=== PATIENT | female | born 1960 | race American Indian/Alaskan Native ===

== ENCOUNTER 2016-08-10 15:26 | Emergency (ER) | payer OTHER ==
[2016-08-10 15:27] VITALS: BMI 31.3
[2016-08-10 15:33] VITALS: PULSE 96; RESP 18; TEMP 98; O2SAT 100
--- NOTE | 2016-08-10 16:05 | ED PDOC ---
Lower Extremity Pain/Injury Time Seen by Provider: 08/10/16 15:37 Chief Complaint (Nursing): Lower Extremity Problem/Injury Chief Complaint (Provider): right ankle pain History Per: Patient History/Exam Limitations: no limitations Current Symptoms Are (Timing): Still Present Additional Complaint(s): Aarti Staley is a 56 year old female, with a previous medical history of hypertension, arthritis and back problems, who presents to the ED with complaints of atraumatic right ankle pain and swelling. Patient denies any numbness or tingling. Past Medical History Reviewed: Historical Data, Nursing Documentation, Vital Signs Vital Signs: Last Vital Signs Temp 98 F 08/10/16 15:28 Pulse 96 H 08/10/16 15:28 Resp 18 08/10/16 15:28 BP Pulse Ox 100 08/10/16 15:28 - Medical History PMH: Arthritis, Back Problems (chronic pain), HTN - Family History Family History: States: Unknown Family Hx - Immunization History Hx Tetanus Toxoid Vaccination: Yes - Home Medications Home Medications: Ambulatory Orders Medication Instructions Recorded Amoxicillin/Clavulanate Pota 1 tab PO BID #20 tab 01/18/14 [Augmentin 875 mg-125 mg] Fluticasone Nasal [Flonase] 1 actuation NS BID #1 bottle 01/18/14 Docusate Sodium [Colace] 1 tab PO BID PRN #20 sgl 05/31/14 Hard Fat/Phenylephrine [place] 1 sup RC DAILY #7 sup 05/31/14 [Anusol Suppository] Hydrochlorothiazide [HCTZ] 25 mg PO DAILY #15 05/31/14 Enalapril Maleate [Vasotec] 10 mg PO DAILY #30 tab 01/03/15 Aspirin [Aspirin] 81 mg PO DAILY 02/09/15 Enalapril Maleate [Vasotec] 10 mg PO DAILY #30 tab 02/09/15 traMADol [Ultram] 50 mg PO TID PRN #15 tab 06/10/15 Naproxen [Naprosyn] 500 mg PO Q12 #15 tab 08/23/15 Olopatadine HCl [Pataday] 1 drop OU DAILY #1 bottle 08/28/15 Polymyxin/Trimethoprim Sulfate 2 drop OU TID #10 bottle 08/28/15 [Polytrim Ophth Soln] Cyclobenzaprine [Cyclobenzaprine 10 mg PO TID #30 tab 10/30/15 HCl] Naproxen [Naprosyn] 500 mg PO BID PRN #20 tablet 10/30/15 - Allergies Allergies/Adverse Reactions: Allergies Allergy/AdvReac Type Severity Reaction Status Date / Time No Known Allergies Allergy Verified 08/23/15 03:55 Review of Systems ROS Statement: Except As Marked, All Systems Reviewed And Found Negative Musculoskeletal: Positive for: Foot Pain (right ankle ), Other (right ankle swelling ) Physical Exam - Reviewed Nursing Documentation Reviewed: Yes Vital Signs Reviewed: Yes - Physical Exam Appears: Positive for: Well, Non-toxic, No Acute Distress Pulses-Dorsalis Pedis (L): 2+ Pulses-Dorsalis Pedis (R): 2+ Extremity: Positive for: Normal ROM, Capillary Refill (< 2 seconds ), Other ( right ankle within normal limits ). Negative for: Tenderness, Calf Tenderness, Deformity, Swelling Neurologic/Psych: Positive for: Alert, Oriented - ECG O2 Sat by Pulse Oximetry: 100 (RA) Pulse Ox Interpretation: Normal Medical Decision Making Medical Decision Making: Initial Impression: Right ankle pain Initial Plan: * x-ray right ankle X-ray without acute fracture or dislocation. (+) narrowing of the anter space between the tibia and talus. Sourav wrap placed. Scribe Attestation: Documented by Iliana Rosenberg, acting as a scribe for Jalyn Leggett PA-C. Provider Scribe Attestation: All medical record entries made by the Scribe were at my direction and personally dictated by me. I have reviewed the chart and agree that the record accurately reflects my personal performance of the history, physical exam, medical decision making, and the department course for this patient. I have also personally directed, reviewed, and agree with the discharge instructions and disposition. Disposition - Clinical Impression Clinical Impression: Ankle pain - Patient ED Disposition Is Patient to be Admitted: No Counseled Patient/Family Regarding: Diagnosis, Need For Followup - Disposition Referrals: [facility] [Outside] [facility] [Outside] Disposition: Routine/Home Disposition Time: 17:22 Condition: GOOD Additional Instructions: Ice, motrin for pain. Instructions: Arthralgia (ED)
--- NOTE | 2016-08-11 09:57 | RAD ---
PROCEDURE: Right Ankle Radiographs. HISTORY: ankle pain and swelling COMPARISON: None FINDINGS: BONES: Normal. No fracture. JOINTS: Normal. No osteoarthritis. Ankle mortise maintained. Talar dome intact SOFT TISSUES: Normal. OTHER FINDINGS: None. IMPRESSION: Normal right ankle radiographs.
== END 2016-08-10 18:03 | disposition home or self-care (01) ==
LOC: H.ER 15:26
DX: M25.571 Pain in right ankle and joints of right foot (principal); I10 Essential (primary) hypertension

== ENCOUNTER 2016-11-01 16:06 | Emergency (ER) | payer OTHER ==
[2016-11-01 16:06] VITALS: BMI 31.3
[2016-11-01 16:50] VITALS: BP 209/135; PULSE 62; RESP 16; TEMP 98.1; O2SAT 96
--- NOTE | 2016-11-01 17:04 | ED PDOC ---
Lower Extremity Pain/Injury Time Seen by Provider: 11/01/16 17:03 Chief Complaint (Nursing): Lower Extremity Problem/Injury Chief Complaint (Provider): FOOT PAIN History Per: Patient (56 Y/O FEMALE HERE WITH LEFT FOOT PAIN ONGOING. DENIES ANY FALLS. PATIENT HAS H/O HTN AND HAS BEEN NONCOMPLIANT WITH MEDICATIONS. DENIES ANY CHEST PAIN/ABDOMINAL PAIN. DOES NOT WANT ANY EVALUATION OR TREATMENT OF BLOOD PRESSURE.) Past Medical History Reviewed: Historical Data, Nursing Documentation, Vital Signs Vital Signs: Last Vital Signs Temp 98.1 F 11/01/16 16:45 Pulse 62 11/01/16 16:45 Resp 16 11/01/16 16:45 BP 209/135 H 11/01/16 16:45 Pulse Ox 96 11/01/16 16:45 - Medical History PMH: Arthritis, Back Problems (chronic pain), HTN - Family History Family History: States: Unknown Family Hx - Immunization History Hx Tetanus Toxoid Vaccination: Yes - Home Medications Home Medications: Ambulatory Orders Medication Instructions Recorded Amoxicillin/Clavulanate Pota 1 tab PO BID #20 tab 01/18/14 [Augmentin 875 mg-125 mg] Fluticasone Nasal [Flonase] 1 actuation NS BID #1 bottle 01/18/14 Docusate Sodium [Colace] 1 tab PO BID PRN #20 sgl 05/31/14 Hard Fat/Phenylephrine [place] 1 sup RC DAILY #7 sup 05/31/14 [Anusol Suppository] Hydrochlorothiazide [HCTZ] 25 mg PO DAILY #15 05/31/14 Enalapril Maleate [Vasotec] 10 mg PO DAILY #30 tab 01/03/15 Aspirin [Aspirin] 81 mg PO DAILY 02/09/15 Enalapril Maleate [Vasotec] 10 mg PO DAILY #30 tab 02/09/15 traMADol [Ultram] 50 mg PO TID PRN #15 tab 06/10/15 Naproxen [Naprosyn] 500 mg PO Q12 #15 tab 08/23/15 Olopatadine HCl [Pataday] 1 drop OU DAILY #1 bottle 08/28/15 Polymyxin/Trimethoprim Sulfate 2 drop OU TID #10 bottle 08/28/15 [Polytrim Ophth Soln] Cyclobenzaprine [Cyclobenzaprine 10 mg PO TID #30 tab 10/30/15 HCl] Naproxen [Naprosyn] 500 mg PO BID PRN #20 tablet 10/30/15 Ibuprofen [Motrin Tab] 800 mg PO Q6H PRN #2 tab 08/10/16 Acetaminophen [Acetaminophen Extra 2 tab PO Q6 PRN #24 tablet 11/01/16 Strength] Enalapril/Hydrochlorothiazide 1 each PO DAILY #15 tablet 11/01/16 [Enalapril-Hctz 10-25 mg Tablet] - Allergies Allergies/Adverse Reactions: Allergies Allergy/AdvReac Type Severity Reaction Status Date / Time No Known Allergies Allergy Verified 08/23/15 03:55 Review of Systems ROS Statement: Except As Marked, All Systems Reviewed And Found Negative Physical Exam - Reviewed Nursing Documentation Reviewed: Yes Vital Signs Reviewed: Yes - Physical Exam Appears: Positive for: Well, Non-toxic, No Acute Distress Head Exam: Positive for: ATRAUMATIC, NORMAL INSPECTION, NORMOCEPHALIC Skin: Positive for: Normal Color, Warm, DRY Eye Exam: Positive for: EOMI, Normal appearance, PERRL ENT: Positive for: Normal ENT Inspection Neck: Positive for: Normal, Painless ROM Cardiovascular/Chest: Positive for: Regular Rate, Rhythm Respiratory: Positive for: CNT, Normal Breath Sounds Gastrointestinal/Abdominal: Positive for: Normal Exam, Bowel Sounds, Soft Back: Positive for: Normal Inspection Extremity: Positive for: Normal ROM, Tenderness (TENDERNESS NOTED DORSUM LEFT FOOT) Neurologic/Psych: Positive for: Alert, Oriented - ECG O2 Sat by Pulse Oximetry: 96 - Progress ED Course And Treament: XRY OF FOOT: NO OBVIOUS FX. ? DJD D/W PATIENT. PATIENT DOES NOT WANT ANTIHYPERTENSIVES OR ANY EVALUATION OF ELEVATED BLOOD PRESSURE. D/W HER POSSIBLE EFFECTS OF UNCONTROLLED BLOOD PRESSURE. ACETAMINOPHEN 975MG X 1 DOSE FOR FOOT PAIN Disposition - Clinical Impression Clinical Impression: Foot pain, Elevated blood pressure - Patient ED Disposition Is Patient to be Admitted: No - Disposition Disposition: Against Medical Advice Disposition Time: 17:24 Condition: FAIR Prescriptions: Acetaminophen [Acetaminophen Extra Strength] 2 tab PO Q6 PRN #24 tablet PRN Reason: Pain, Moderate (4-7) Enalapril/Hydrochlorothiazide [Enalapril-Hctz 10-25 mg Tablet] 1 each PO DAILY # 15 tablet Instructions: Foot Sprain (ED), DASH Eating Plan (ED), Hypertension (ED) Forms: [facility] (Croatian)
--- NOTE | 2016-11-01 18:48 | RAD ---
PROCEDURE: Right Foot Radiographs. HISTORY: Foot Pain. No history of recent/ related trauma provided COMPARISON: 06/10/2015 FINDINGS: BONES: Normal. No fracture. JOINTS: Mild degenerative changes tarsal bones. No significant interval change. SOFT TISSUES: Normal. OTHER FINDINGS: None. IMPRESSION: No significant or acute findings to account for/ related to the clinical presentation. No significant interval change compared to the prior examination(s).
== END 2016-11-01 18:00 | disposition left against medical advice (07) ==
LOC: H.ER 16:06
DX: M79.672 Pain in left foot (principal); I10 Essential (primary) hypertension

== ENCOUNTER 2016-12-10 10:44 | Emergency (ER) | payer OTHER ==
[2016-12-10 10:51] VITALS: BP 168/145; PULSE 80; RESP 16; TEMP 98; O2SAT 100
[2016-12-10 10:53] VITALS: BMI 30.7
--- NOTE | 2016-12-10 11:34 | ED PDOC ---
HPI: Back Time Seen by Provider: 12/10/16 11:05 Chief Complaint (Nursing): Back Pain Chief Complaint (Provider): Back Pain History Per: Patient Additional Complaint(s): Patient is a 56 yo female, PMH of HTN, said she was sweeping yesterday and twisted her back. She reports that she has been having pain in her back, on the right side, radiating down RLE. No bowel or bladder dysfunction. Past Medical History Reviewed: Nursing Documentation, Vital Signs Vital Signs: Last Vital Signs Temp 98.0 F 12/10/16 10:50 Pulse 80 12/10/16 10:50 Resp 16 12/10/16 10:50 BP 168/145 H 12/10/16 10:50 Pulse Ox 100 12/10/16 10:50 - Medical History PMH: Arthritis, Back Problems (chronic pain), HTN - Surgical History Surgical History: No Surg Hx - Family History Family History: States: Unknown Family Hx - Living Arrangements Living Arrangements: With Family - Social History Current smoker - smoking cessation education provided: No Alcohol: None Drugs: Denies - Immunization History Hx Tetanus Toxoid Vaccination: Yes - Home Medications Home Medications: Ambulatory Orders Medication Instructions Recorded Amoxicillin/Clavulanate Pota 1 tab PO BID #20 tab 01/18/14 [Augmentin 875 mg-125 mg] Fluticasone Nasal [Flonase] 1 actuation NS BID #1 bottle 01/18/14 Docusate Sodium [Colace] 1 tab PO BID PRN #20 sgl 05/31/14 Hard Fat/Phenylephrine [place] 1 sup RC DAILY #7 sup 05/31/14 [Anusol Suppository] Hydrochlorothiazide [HCTZ] 25 mg PO DAILY #15 05/31/14 Enalapril Maleate [Vasotec] 10 mg PO DAILY #30 tab 01/03/15 Aspirin [Aspirin] 81 mg PO DAILY 02/09/15 Enalapril Maleate [Vasotec] 10 mg PO DAILY #30 tab 02/09/15 traMADol [Ultram] 50 mg PO TID PRN #15 tab 06/10/15 Naproxen [Naprosyn] 500 mg PO Q12 #15 tab 08/23/15 Olopatadine HCl [Pataday] 1 drop OU DAILY #1 bottle 08/28/15 Polymyxin/Trimethoprim Sulfate 2 drop OU TID #10 bottle 08/28/15 [Polytrim Ophth Soln] Cyclobenzaprine [Cyclobenzaprine 10 mg PO TID #30 tab 10/30/15 HCl] Naproxen [Naprosyn] 500 mg PO BID PRN #20 tablet 10/30/15 Ibuprofen [Motrin Tab] 800 mg PO Q6H PRN #2 tab 08/10/16 Acetaminophen [Acetaminophen Extra 2 tab PO Q6 PRN #24 tablet 11/01/16 Strength] Enalapril/Hydrochlorothiazide 1 each PO DAILY #15 tablet 11/01/16 [Enalapril-Hctz 10-25 mg Tablet] Cyclobenzaprine [Cyclobenzaprine 10 mg PO TID #20 tab 12/10/16 HCl] Ibuprofen [Motrin] 600 mg PO Q6 #20 tab 12/10/16 oxyCODONE/Acetaminophen [Percocet 1 ea PO Q6 PRN #5 tab 12/10/16 5/325 mg Tab] - Allergies Allergies/Adverse Reactions: Allergies Allergy/AdvReac Type Severity Reaction Status Date / Time No Known Allergies Allergy Verified 08/23/15 03:55 Review of Systems ROS Statement: Except As Marked, All Systems Reviewed And Found Negative Musculoskeletal: Positive for: Back Pain Physical Exam - Reviewed Nursing Documentation Reviewed: Yes Vital Signs Reviewed: Yes - Physical Exam Appears: Positive for: Well, Non-toxic, No Acute Distress Head Exam: Positive for: ATRAUMATIC, NORMAL INSPECTION, NORMOCEPHALIC Skin: Positive for: Normal Color, Warm, DRY Eye Exam: Positive for: EOMI, Normal appearance, PERRL ENT: Positive for: Normal ENT Inspection Neck: Positive for: Normal, Painless ROM Cardiovascular/Chest: Positive for: Regular Rate, Rhythm Respiratory: Positive for: CNT, Normal Breath Sounds Gastrointestinal/Abdominal: Positive for: Normal Exam, Bowel Sounds, Soft Back: Positive for: Normal Inspection, Muscle Spasm, Other (LS right sided paraspinal tenderness). Negative for: Vertebral Tenderness Extremity: Positive for: Normal ROM Neurologic/Psych: Positive for: Alert, Oriented - ECG O2 Sat by Pulse Oximetry: 100 Medical Decision Making Medical Decision Making: Medicated with Motrin and Flexeril, reports pain improved on re-eval Pt ambulating around ED and asking to go home. repeat BP: 155/78 Disposition - Clinical Impression Clinical Impression: Low back pain, Acute back pain - Patient ED Disposition Is Patient to be Admitted: No - Disposition Disposition: Routine/Home Disposition Time: 15:42 Condition: STABLE Prescriptions: Cyclobenzaprine [Cyclobenzaprine HCl] 10 mg PO TID #20 tab Ibuprofen [Motrin] 600 mg PO Q6 #20 tab oxyCODONE/Acetaminophen [Percocet 5/325 mg Tab] 1 ea PO Q6 PRN #5 tab PRN Reason: Pain, Severe (8-10) Instructions: Acute Low Back Pain (ED) Forms: [facility] ([place]amazight) - POA Present On Arrival: None
[2016-12-10] MEDS ORDERED: Oxycodone/Acetaminophen 5/325 mg Tab PO STA (12:41)
[2016-12-10] MEDS ORDERED: Oxycodone/Acetaminophen 5/325 mg Tab ONE (12:45)
== END 2016-12-10 12:56 | disposition home or self-care (01) ==
LOC: H.ER 10:44
DX: M54.5 Low back pain (principal); G89.29 Other chronic pain; I10 Essential (primary) hypertension; Z79.82 Long term (current) use of aspirin

== ENCOUNTER 2017-01-24 13:26 | Emergency (ER) | payer OTHER ==
[2017-01-24 13:26] VITALS: BMI 30.7
[2017-01-24 13:32] VITALS: RESP 17; TEMP 96; O2SAT 97
[2017-01-24 13:35] VITALS: BP 227/137
--- NOTE | 2017-01-24 14:06 | ED PDOC ---
HPI: General Adult Time Seen by Provider: 01/24/17 13:41 Chief Complaint (Nursing): Eye Problem History Per: Patient History/Exam Limitations: no limitations Additional Complaint(s): 56 y/o F with a PMHx of HTN presenting with a BP of 227/137. Pt came to ER c/o bilateral eye pain, redness and whitish thick discharge that began simultaneously on both eyes 4 days ago. Pt reports NOT taking her hypertensive medications for 2 days. Pt reports diffuse headache and lightheadedness. Pt denies fever, visual disturbances, CP, SOB, cough, nasal congestion, runny nose , abdominal pain, urinary complaints or peripheral edema. NKDA Meds: Enalapril PMHx: HTN PSHx: denied. FHx: HTN SHx: Pt smokes 5 cigarettes per day for ~36 years. EtOH ocasionally and NO rec drugs. Past Medical History Vital Signs: Last Vital Signs Temp 96 F L 01/24/17 13:29 Pulse 89 01/24/17 14:58 Resp 17 01/24/17 13:29 BP 227/137 H 01/24/17 13:29 Pulse Ox 97 01/24/17 14:58 - Medical History PMH: Arthritis, Back Problems (chronic pain), HTN - Surgical History Surgical History: No Surg Hx - Family History Family History: States: Unknown Family Hx - Social History Current smoker - smoking cessation education provided: Yes Alcohol: Social Drugs: Denies - Immunization History Hx Tetanus Toxoid Vaccination: Yes - Home Medications Home Medications: Ambulatory Orders Medication Instructions Recorded Amoxicillin/Clavulanate Pota 1 tab PO BID #20 tab 01/18/14 [Augmentin 875 mg-125 mg] Fluticasone Nasal [Flonase] 1 actuation NS BID #1 bottle 01/18/14 Docusate Sodium [Colace] 1 tab PO BID PRN #20 sgl 05/31/14 Hard Fat/Phenylephrine [place] 1 sup RC DAILY #7 sup 05/31/14 [Anusol Suppository] Hydrochlorothiazide [HCTZ] 25 mg PO DAILY #15 05/31/14 Enalapril Maleate [Vasotec] 10 mg PO DAILY #30 tab 01/03/15 Aspirin [Aspirin] 81 mg PO DAILY 02/09/15 Enalapril Maleate [Vasotec] 10 mg PO DAILY #30 tab 02/09/15 traMADol [Ultram] 50 mg PO TID PRN #15 tab 06/10/15 Naproxen [Naprosyn] 500 mg PO Q12 #15 tab 08/23/15 Olopatadine HCl [Pataday] 1 drop OU DAILY #1 bottle 08/28/15 Polymyxin/Trimethoprim Sulfate 2 drop OU TID #10 bottle 08/28/15 [Polytrim Ophth Soln] Cyclobenzaprine [Cyclobenzaprine 10 mg PO TID #30 tab 10/30/15 HCl] Naproxen [Naprosyn] 500 mg PO BID PRN #20 tablet 10/30/15 Ibuprofen [Motrin Tab] 800 mg PO Q6H PRN #2 tab 08/10/16 Acetaminophen [Acetaminophen Extra 2 tab PO Q6 PRN #24 tablet 11/01/16 Strength] Enalapril/Hydrochlorothiazide 1 each PO DAILY #15 tablet 11/01/16 [Enalapril-Hctz 10-25 mg Tablet] Cyclobenzaprine [Cyclobenzaprine 10 mg PO TID #20 tab 12/10/16 HCl] Ibuprofen [Motrin] 600 mg PO Q6 #20 tab 12/10/16 oxyCODONE/Acetaminophen [Percocet 1 ea PO Q6 PRN #5 tab 12/10/16 5/325 mg Tab] Tobramycin 0.3% [Tobramycin 5 Ml] 1 drop OP TID #1 bottle 01/24/17 amLODIPine [Norvasc] 10 mg PO DAILY #30 tab 01/24/17 - Allergies Allergies/Adverse Reactions: Allergies Allergy/AdvReac Type Severity Reaction Status Date / Time No Known Allergies Allergy Verified 01/24/17 13:28 Review of Systems Constitutional: Negative for: Fever, Chills Eyes: Positive for: Pain, Conjunctivae Inflammation, Redness. Negative for: Vision Change ENT: Negative for: Ear Pain, Ear Discharge Cardiovascular: Negative for: Chest Pain, Palpitations Respiratory: Negative for: Cough, Shortness of Breath Gastrointestinal: Negative for: Nausea, Vomiting, Abdominal Pain, Diarrhea, Constipation Genitourinary Female: Negative for: Dysuria, Frequency, Hematuria, Vaginal Discharge Musculoskeletal: Negative for: Neck Pain Skin: Negative for: Rash Neurological: Negative for: Weakness, Numbness, Confusion Physical Exam - Reviewed Vital Signs Reviewed: Yes - Physical Exam Appears: Positive for: Well, No Acute Distress Head Exam: Positive for: ATRAUMATIC, NORMAL INSPECTION, NORMOCEPHALIC Skin: Positive for: Normal Color, Warm Eye Exam: Positive for: Conjunctival injection (presence of photophobia. ) ENT: Positive for: Normal ENT Inspection Neck: Positive for: Normal, Supple Cardiovascular/Chest: Positive for: Regular Rate, Rhythm Respiratory: Positive for: Normal Breath Sounds Gastrointestinal/Abdominal: Positive for: Normal Exam, Bowel Sounds. Negative for: Organomegaly - ECG ECG: Positive for: Viewed By Me ECG Rhythm: Positive for: Sinus Rhythm Interpretation Of Abn EKG: Left ventricular hypertrophy with repolarization abnormality. Rate: 89 O2 Sat by Pulse Oximetry: 97 Pulse Ox Interpretation: Normal Medical Decision Making Medical Decision Makin56 y/o F presenting with elevated BP. Plan: --Labetalol --EKG --CBC --CMP --Urinalysis 14:02: Repeated BP 202/145-very elevated. Today's EKG showed LV hypertrophy with repolarization abnormality, same result as on 02/09/15. 14:45: Pt declined pharmacotherapy and blood analysis. Pt was extensively counseled and educated on the complications from very elevated BP. Pt explained that patient with very elevated RUDY are prone to develop strokes and heart attacks. Pt reported back, stating she is willing to take her chances. Pt will be discharged against medical advise, Rx for Amlodipine and Tobradex will be prescribed. Pt instructed to be evaluated by PCP promptly. Disposition - Clinical Impression Clinical Impression: Conjunctivitis, Hypertension - Patient ED Disposition Is Patient to be Admitted: No - Disposition Referrals: [facility] [Outside] Disposition: Against Medical Advice Disposition Time: 14:59 Condition: GOOD Prescriptions: amLODIPine [Norvasc] 10 mg PO DAILY #30 tab Tobramycin 0.3% [Tobramycin 5 Ml] 1 drop OP TID #1 bottle Instructions: Hypertension (ED), Conjunctivitis (ED) Forms: [employer] (Japanese)
[2017-01-24 14:57] VITALS: PULSE 89
--- NOTE | 2017-01-25 12:59 | CARD ---
APPROVED REPORT EKG Measurement Heart [id number] <Conclusion> Normal sinus rhythm Biatrial enlargement Left ventricular hypertrophy with repolarization abnormality Cannot rule out Septal infarct, age undetermined Abnormal ECG
== END 2017-01-24 14:52 | disposition home or self-care (01) ==
LOC: H.ER 13:26
DX: H10.9 Unspecified conjunctivitis (principal); I10 Essential (primary) hypertension; G89.29 Other chronic pain; I11.9 Hypertensive heart disease without heart failure; I51.7 Cardiomegaly; Z79.82 Long term (current) use of aspirin; Z82.49 Family history of ischemic heart disease and other diseases of the circulatory system

== ENCOUNTER 2017-05-24 09:33 | Emergency (ER) | payer OTHER ==
[2017-05-24] MEDS ORDERED: DiphenhydrAMINE 50 mg/ml Inj IVP STA (09:48)
[2017-05-24] MEDS ORDERED: Albuterol-Ipratrop 3 mg / 0.5 (3 ml) UD INH STA ×2 (09:48→10:21)
--- NOTE | 2017-05-24 09:56 | ED PDOC ---
HPI: General Adult Time Seen by Provider: 05/24/17 09:38 Chief Complaint (Provider): Chest Pain/Shortness of Breath History Per: Patient History/Exam Limitations: no limitations Onset/Duration Of Symptoms: Days (x1) Current Symptoms Are (Timing): Still Present Additional Complaint(s): Aarti Staley is a 57 year old female that presents to the ED with a chief complaint of throat tightness, right-sided chest pain, and shortness of breath that she has been experiencing since yesterday. Patient denies any cough or palpitations and states that she has never had symptoms like this before. Against Medical Advice - AMA Patient Left Against Medical Advice: The patient declines admission to the hospital and wishes to leave the Emergency Department. This action is against my medical advice. This decision was made with informed refusal. The patient was told that admission to the hospital is necessary. Explanation of the reasons why were discussed. The risks of leaving were explained to the patient and include, but are not limited to, worsening of known or currently unknown conditions, permanent disability and from undiagnosed or untreated conditions. The patient has the capacity to make this informed decision and understands my explanation of the current medical problem and risks of leaving. The patient voluntarily accepts these risks and signed an AMA form documenting our conversation. The patient was given the opportunity to ask questions and reconsider. The patient was encouraged to return to the Emergency Department at any time for further care. Past Medical History Reviewed: Historical Data, Nursing Documentation, Vital Signs Vital Signs: Last Vital Signs Temp 98 F 05/24/17 09:54 Pulse 81 05/24/17 10:15 Resp 21 05/24/17 10:15 BP 168/86 H 05/24/17 10:15 Pulse Ox 96 05/24/17 10:15 - Medical History PMH: Arthritis, Back Problems (chronic pain), HTN - Family History Family History: States: Unknown Family Hx - Social History Current smoker - smoking cessation education provided: Yes - Immunization History Hx Tetanus Toxoid Vaccination: Yes - Home Medications Home Medications: Ambulatory Orders Medication Instructions Recorded No Known Home Med 05/24/17 - Allergies Allergies/Adverse Reactions: Allergies Allergy/AdvReac Type Severity Reaction Status Date / Time No Known Allergies Allergy Verified 05/24/17 09:51 Review of Systems ROS Statement: Except As Marked, All Systems Reviewed And Found Negative ENT: Positive for: Other (throat tightness) Cardiovascular: Positive for: Chest Pain (right-sided) Respiratory: Positive for: Shortness of Breath Physical Exam - Reviewed Nursing Documentation Reviewed: Yes Vital Signs Reviewed: Yes - Physical Exam Appears: Positive for: Non-toxic, No Acute Distress Head Exam: Positive for: ATRAUMATIC, NORMOCEPHALIC Skin: Positive for: Normal Color, Warm Eye Exam: Positive for: EOMI, Normal appearance, PERRL Cardiovascular/Chest: Positive for: Regular Rate, Rhythm. Negative for: Murmur Respiratory: Positive for: Wheezing (b/l), Respiratory Distress (mild). Negative for: Normal Breath Sounds Gastrointestinal/Abdominal: Positive for: Normal Exam, Soft. Negative for: Tenderness Back: Positive for: Normal Inspection. Negative for: L CVA Tenderness, R CVA Tenderness Extremity: Positive for: Normal ROM. Negative for: Deformity, Swelling Neurologic/Psych: Positive for: Alert, Oriented. Negative for: Motor/Sensory Deficits - Laboratory Results Result Diagrams: 05/24/17 09:45 05/24/17 09:45 Medical Decision Making Medical Decision Making: Impression: Wheezing, Throat Tightness Plan: * Chest X-Ray * EKG * CMP * CBC * PTT * PT * D-Dimer * Troponin I * Blood culture * Urinalysis * Benadryl 50 mg IV * Pepcid 20 mg IV * Solumedrol 125 mg IV * Duoneb 3 ml INH * Peak Flow Pre/Post Tx * Reevaluation 13:17 Patient left AMA. Scribe Attestation: Documented by Ashley Joiner, acting as a scribe for Iliana Reynolds MD. Provider Scribe Attestation: All medical record entries made by the Scribe were at my direction and personally dictated by me. I have reviewed the chart and agree that the record accurately reflects my personal performance of the history, physical exam, medical decision making, and the department course for this patient. I have also personally directed, reviewed, and agree with the discharge instructions and disposition. Disposition - Clinical Impression Clinical Impression: Uncontrolled hypertension, Wheezing - Disposition Disposition: Against Medical Advice Disposition Time: 13:17 Condition: UNKNOWN
[2017-05-24] MEDS ORDERED: DiphenhydrAMINE 50 mg/ml Inj ONE (10:03)
[2017-05-24 10:27] LABS: ALB/GLOB RATIO 1.1 (1.0-2.1); ALBUMIN 4.2 g/dL (3.5-5.0); ALT/SGPT 38 U/L (9-52); AST/SGOT 37 U/L (14-36); BLOOD UREA NITROGEN 13 mg/dl (7-17); CALCIUM 9.7 mg/dL (8.4-10.2); GFR AFRICAN-AMERICAN > 60; GFR NON-AFRICAN AMERICAN > 60
[2017-05-24 10:34] LABS: BASO % 0.4 % (0.0-2.0); EOS # 0.2 K/uL (0.0-0.7); HEMOGLOBIN 13.6 g/dL (12.0-16.0); LYMPH # 2.3 K/uL (1.0-4.3); LYMPH % 30.3 % (20.0-40.0); MEAN CELL VOLUME 83.4 fl (81.0-99.0); MEAN CORPUSCULAR HEMOGLOBIN 28.1 pg (27.0-31.0); MEAN CORPUSCULAR HGB CONC 33.7 g/dL (33.0-37.0); MEAN PLATELET VOLUME 9.7 fl (7.2-11.7); MONO # 0.5 K/uL (0.0-0.8); MONO % 6.7 % (0.0-10.0); NEUT # 4.6 K/uL (1.8-7.0); NEUT % 60.6 % (50.0-75.0); NRBC % 0.2 % (0.0-0.0); RBC 4.83 Mil/uL (3.80-5.20); RED CELL DISTRIBUTION WIDTH 14.7 % (11.5-14.5); WHITE BLOOD COUNT 7.6 K/uL (4.8-10.8)
[2017-05-24 10:36] LABS: PROTHROMBIN TIME 10.5 Seconds (9.8-13.1)
[2017-05-24] MEDS ORDERED: Potassium Chloride 20 mEq ER Tab PO STA (10:37)
[2017-05-24] MEDS ORDERED: Potassium Chloride 20 mEq ER Tab PO ONE (10:43)
--- NOTE | 2017-05-24 11:36 | CARD ---
APPROVED REPORT EKG Measurement Heart [id number] <Conclusion> Normal sinus rhythm Biatrial enlargement Left ventricular hypertrophy with repolarization abnormality Prolonged QT Abnormal ECG
[2017-05-24 12:19] LABS: SQUAMOUS EPITHIAL < 1 /hpf (0-5); URINE BACTERIA RARE (<OCC); URINE BILIRUBIN NEGATIVE (NEGATIVE); URINE BLOOD NEGATIVE (NEGATIVE); URINE CLARITY CLEAR (Clear); URINE COLOR YELLOW (YELLOW); URINE GLUCOSE (UA) NEG (Normal); URINE LEUKOCYTE ESTERASE NEG Leu/uL (Negative); URINE NITRATE NEGATIVE (NEGATIVE); URINE PROTEIN NEGATIVE (NEGATIVE); URINE UROBILINOGEN 0.2-1.0 mg/dL (0.2-1.0)
--- NOTE | 2017-05-24 14:23 | RAD ---
HISTORY: SOB COMPARISON: Chest x-ray performed 12/17/11 TECHNIQUE: Chest, one view. FINDINGS: Examination limited by habitus. LUNGS: Mild pulmonary venous congestion. Linear atelectasis, right midlung zone. Please note that chest x-ray has limited sensitivity for the detection of pulmonary masses. PLEURA: No significant pleural effusion identified. No definite pneumothorax . CARDIOVASCULAR: Cardiomegaly. OSSEOUS STRUCTURES: No acute osseous abnormality identified. VISUALIZED UPPER ABDOMEN: Unremarkable. OTHER FINDINGS: None. IMPRESSION: Mild pulmonary venous congestion. Linear atelectasis, right midlung zone. Cardiomegaly.
[2017-05-24 15:15] VITALS: BP 167/95; PULSE 68; RESP 18; TEMP 98.4; O2SAT 93
== END 2017-05-24 14:00 | disposition left against medical advice (07) ==
LOC: H.ER 09:33
DX: I10 Essential (primary) hypertension (principal); R06.2 Wheezing; F17.200 Nicotine dependence, unspecified, uncomplicated; G89.29 Other chronic pain
CPT/HCPCS: 71045; 80053; 81003; 84484; 85025; 85378; 85610; 85730; 87040; 93005; 94640; 96374; 96375; 99284; J1200; J2930

== ENCOUNTER 2017-09-05 12:52 | Emergency (ER) | payer OTHER ==
[2017-09-05 12:53] VITALS: BMI 30.7
[2017-09-05 13:39] VITALS: RESP 18
--- NOTE | 2017-09-05 13:55 | ED PDOC ---
Lower Extremity Pain/Injury Time Seen by Provider: 09/05/17 13:53 Chief Complaint (Nursing): Lower Extremity Problem/Injury Chief Complaint (Provider): ankle/foot injury History Per: Patient (57 y/o female here with ankle injury that occurred 5 days ago. Notes moderate foot pain. Denies any previous injuries. Patient states she stopped taking her anti-hypertensive 15 days ago when she ran out. Denies any headache/chestpain/sob.) Against Medical Advice - AMA Patient Left Against Medical Advice: The patient declines admission to the hospital and wishes to leave the Emergency Department. This action is against my medical advice. This decision was made with informed refusal. The patient was told that admission to the hospital is necessary. Explanation of the reasons why were discussed. The risks of leaving were explained to the patient and include, but are not limited to, worsening of known or currently unknown conditions, permanent disability and from undiagnosed or untreated conditions. The patient has the capacity to make this informed decision and understands my explanation of the current medical problem and risks of leaving. The patient voluntarily accepts these risks and signed an AMA form documenting our conversation. The patient was given the opportunity to ask questions and reconsider. The patient was encouraged to return to the Emergency Department at any time for further care. 09/05/17 15:44 patient refused to sign AMA paperwork. States she feels worse when she takes BP medications which is why she is noncompliant. Past Medical History Reviewed: Historical Data, Nursing Documentation, Vital Signs Vital Signs: Last Vital Signs Temp 98.9 F 09/05/17 13:11 Pulse 74 09/05/17 13:39 Resp 18 09/05/17 13:39 BP 206/125 H 09/05/17 13:39 Pulse Ox 100 09/05/17 13:39 - Medical History PMH: Arthritis, Back Problems (chronic pain), HTN - Family History Family History: States: Unknown Family Hx - Immunization History Hx Tetanus Toxoid Vaccination: Yes - Home Medications Home Medications: Ambulatory Orders Medication Instructions Recorded Albuterol 0.083% [Albuterol 0.083% 3 ml IH Q6H PRN #30 neb 05/24/17 Inhal Ximena (2.5 mg/3 ml) UD] DiphenhydrAMINE [Benadryl] 50 mg PO Q6H PRN #20 cap 05/24/17 Famotidine [Pepcid] 20 mg PO BID #20 tab 05/24/17 Nebulizer [Compact Compressor 1 dev XX PRN PRN #1 dev 05/24/17 Nebulizer] Prednisone 50 mg PO DAILY #4 tab 05/24/17 Enalapril/Hydrochlorothiazide 1 each PO DAILY #14 tablet 09/05/17 [Enalapril-Hctz 10-25 mg Tablet] amLODIPine [Norvasc] 10 mg PO DAILY #14 tab 09/05/17 - Allergies Allergies/Adverse Reactions: Allergies Allergy/AdvReac Type Severity Reaction Status Date / Time No Known Allergies Allergy Verified 05/24/17 09:51 Review of Systems ROS Statement: Except As Marked, All Systems Reviewed And Found Negative Physical Exam - Reviewed Nursing Documentation Reviewed: Yes Vital Signs Reviewed: Yes - Physical Exam Appears: Positive for: Well, Non-toxic, No Acute Distress Head Exam: Positive for: ATRAUMATIC, NORMAL INSPECTION, NORMOCEPHALIC Skin: Positive for: Normal Color, Warm, DRY Eye Exam: Positive for: EOMI, Normal appearance, PERRL ENT: Positive for: Normal ENT Inspection Neck: Positive for: Normal, Painless ROM Cardiovascular/Chest: Positive for: Regular Rate, Rhythm Respiratory: Positive for: CNT, Normal Breath Sounds Gastrointestinal/Abdominal: Positive for: Normal Exam, Soft Back: Positive for: Normal Inspection Extremity: Positive for: Normal ROM, Tenderness (tender right lateral ankle. (+ ) tender distal foot by /3rd.) Neurologic/Psych: Positive for: Alert, Oriented - ECG O2 Sat by Pulse Oximetry: 100 - Progress ED Course And Treament: d/w [facility]. Patient given norvasc 10 mg x 1 dose/ enalapril 10/hctz 25 mg x 1 dose EKG: LVH: T wave inversions noted Patient refuses bloodwork or additional blood pressure medication repeat bp noted elevated. Disposition - Clinical Impression Clinical Impression: Foot sprain, Uncontrolled hypertension, Left against medical advice - Patient ED Disposition Is Patient to be Admitted: No - Disposition Referrals: [facility] [Outside] [facility] [Outside] Disposition: Against Medical Advice Disposition Time: 15:32 Condition: FAIR Prescriptions: amLODIPine [Norvasc] 10 mg PO DAILY #14 tab Enalapril/Hydrochlorothiazide [Enalapril-Hctz 10-25 mg Tablet] 1 each PO DAILY # 14 tablet Instructions: Low Salt Diet, High Blood Pressure Emergencies, Leaving Against Medical Advice Forms: [facility] (Spanish)
--- NOTE | 2017-09-05 15:27 | RAD ---
PROCEDURE: Right Foot Radiographs. HISTORY: right foot injury COMPARISON: None. FINDINGS: BONES: No acute fracture. JOINTS: Degenerative changes involving the navicular and medial cuneiform. SOFT TISSUES: Normal. OTHER FINDINGS: None. IMPRESSION: No demonstrated fracture or dislocation
--- NOTE | 2017-09-05 15:28 | RAD ---
PROCEDURE: Right Ankle Radiographs. HISTORY: ankle injury COMPARISON: Right ankle radiographs dated 08/10/2016 FINDINGS: BONES: No acute fracture. JOINTS: Ankle mortise maintained. Talar dome intact SOFT TISSUES: Normal. OTHER FINDINGS: None. IMPRESSION: No demonstrated fracture or dislocation.
[2017-09-05 16:16] VITALS: PULSE 74; TEMP 98; O2SAT 98
[2017-09-05 16:18] VITALS: BP 200/110
[2017-09-06] MEDS ORDERED: Insulin Regular 100 units/ml ONE (00:33)
--- NOTE | 2017-09-06 11:40 | CARD ---
APPROVED REPORT EKG Measurement Heart [id number] <Conclusion> Normal sinus rhythm Biatrial enlargement Left ventricular hypertrophy with repolarization abnormality Prolonged QT Abnormal ECG
== END 2017-09-05 16:14 | disposition home or self-care (01) ==
LOC: H.ER 12:52
DX: S93.601A Unspecified sprain of right foot, initial encounter (principal); Y92.89 Other specified places as the place of occurrence of the external cause; I10 Essential (primary) hypertension; G89.29 Other chronic pain; I51.7 Cardiomegaly

== ENCOUNTER 2017-12-08 13:24 | Emergency (ER) | payer OTHER ==
[2017-12-08 13:24] VITALS: BMI 30.7
[2017-12-08 13:42] VITALS: TEMP 97.6; O2SAT 97
--- NOTE | 2017-12-08 13:57 | ED PDOC ---
HPI: CCC, URI, Sore Throat Time Seen by Provider: 12/08/17 13:44 Chief Complaint (Nursing): ENT Problem Chief Complaint (Provider): ENT Problem History Per: Patient History/Exam Limitations: no limitations Onset/Duration Of Symptoms: Days (3) Associated Symptoms: Chills, Sore Throat. denies: Fever Additional Complaint(s): 57 years old female with history of asthma presents to the ED for evaluation of sore throat and ear pain associated with chills, pain with swallowing and sweating onset 3 days. Patient reports she has no PMD and only comes here when she feels she need to. She states she was here 2 months ago with a slight heart attack but left AMA. Patient denies any headaches, dizziness, blurry vision, fever or abdominal pain. PMD: non provided Past Medical History Reviewed: Historical Data, Nursing Documentation, Vital Signs Vital Signs: Last Vital Signs Temp 97.6 F 12/08/17 13:40 Pulse 88 12/08/17 14:16 Resp 18 12/08/17 13:40 BP 203/128 H 12/08/17 14:16 Pulse Ox 97 12/08/17 14:03 - Medical History PMH: Arthritis, Asthma, Back Problems (chronic pain), HTN - Surgical History Surgical History: No Surg Hx - Family History Family History: States: Unknown Family Hx - Immunization History Hx Tetanus Toxoid Vaccination: Yes - Home Medications Home Medications: Ambulatory Orders Medication Instructions Recorded Albuterol 0.083% [Albuterol 0.083% 3 ml IH Q6H PRN #30 neb 05/24/17 Inhal Ximena (2.5 mg/3 ml) UD] DiphenhydrAMINE [Benadryl] 50 mg PO Q6H PRN #20 cap 05/24/17 Famotidine [Pepcid] 20 mg PO BID #20 tab 05/24/17 Nebulizer [Compact Compressor 1 dev XX PRN PRN #1 dev 05/24/17 Nebulizer] Prednisone 50 mg PO DAILY #4 tab 05/24/17 Enalapril/Hydrochlorothiazide 1 each PO DAILY #14 tablet 09/05/17 [Enalapril-Hctz 10-25 mg Tablet] amLODIPine [Norvasc] 10 mg PO DAILY #14 tab 09/05/17 Benzocaine/Menthol [Cepacol Sore 1 each MM Q3H PRN #30 lozenge 12/08/17 Throat Lozenge] Enalapril/Hydrochlorothiazide 1 each PO DAILY #14 tablet 12/08/17 [Enalapril-Hctz 10-25 mg Tablet] amLODIPine [Norvasc] 10 mg PO DAILY #14 tab 12/08/17 - Allergies Allergies/Adverse Reactions: Allergies Allergy/AdvReac Type Severity Reaction Status Date / Time No Known Allergies Allergy Verified 12/08/17 13:40 Review of Systems ROS Statement: Except As Marked, All Systems Reviewed And Found Negative Constitutional: Positive for: Chills, Sweats. Negative for: Fever ENT: Positive for: Throat Pain Respiratory: Positive for: Cough Physical Exam - Reviewed Nursing Documentation Reviewed: Yes Vital Signs Reviewed: Yes - Physical Exam Appears: Positive for: Non-toxic, No Acute Distress Head Exam: Positive for: ATRAUMATIC, NORMOCEPHALIC Skin: Positive for: Normal Color, Warm, Dry Eye Exam: Positive for: Normal appearance ENT: Positive for: Tonsillar Exudate (to right side of throat), Tonsillar Swelling. Negative for: Other (Erythema) Neck: Positive for: Normal, Painless ROM, Supple Cardiovascular/Chest: Positive for: Regular Rate, Rhythm. Negative for: Murmur Respiratory: Positive for: Normal Breath Sounds. Negative for: Respiratory Distress Neurologic/Psych: Positive for: Alert, Oriented (x3) - ECG O2 Sat by Pulse Oximetry: 97 (RA) Pulse Ox Interpretation: Normal Medical Decision Making Medical Decision Making: Time: 1355 Initial Impression: pharyngitis, uncontrolled hypertension due to non compliance Initial Plan: --Norvasc 10 mg PO --Vasotec 20 mg PO --Rapid strep group A antigen ----- Scribe Attestation: Documented by Susan Issa, acting as a scribe for Shanita Durand MD. Provider Scribe Attestation: All medical record entries made by the Scribe were at my direction and personally dictated by me. I have reviewed the chart and agree that the record accurately reflects my personal performance of the history, physical exam, medical decision making, and the department course for this patient. I have also personally directed, reviewed, and agree with the discharge instructions and disposition. Disposition - Clinical Impression Clinical Impression: Sore throat (viral) - Patient ED Disposition Is Patient to be Admitted: No Doctor Will See Patient In The: Office Counseled Patient/Family Regarding: Diagnosis, Need For Followup, Rx Given - Disposition Referrals: [facility] [Outside] [facility] [Outside] Disposition: Routine/Home Disposition Time: 14:30 Condition: STABLE Prescriptions: amLODIPine [Norvasc] 10 mg PO DAILY #14 tab Benzocaine/Menthol [Cepacol Sore Throat Lozenge] 1 each MM Q3H PRN #30 lozenge PRN Reason: Sore Throat Enalapril/Hydrochlorothiazide [Enalapril-Hctz 10-25 mg Tablet] 1 each PO DAILY # 14 tablet Instructions: Sore Throat in Adults Forms: [facility] (Icelandic) - POA Present On Arrival: None
[2017-12-08 15:14] VITALS: BP 180/93; PULSE 82; RESP 17
== END 2017-12-08 15:05 | disposition home or self-care (01) ==
LOC: H.ER 13:24
DX: J02.9 Acute pharyngitis, unspecified (principal)

== ENCOUNTER 2018-04-30 14:23 | Emergency (ER) | payer OTHER ==
[2018-04-30 14:27] VITALS: BMI 29.2
[2018-04-30 16:10] VITALS: RESP 18
[2018-04-30 16:11] VITALS: O2SAT 100
--- NOTE | 2018-04-30 16:11 | ED PDOC ---
Upper Extremity Pain/Injury Time Seen by Provider: 04/30/18 14:48 Chief Complaint (Nursing): Upper Extremity Problem/Injury Chief Complaint (Provider): right shoulder pain History Per: Patient History/Exam Limitations: no limitations Onset/Duration Of Symptoms: Days (x3) Current Symptoms Are (Timing): Still Present Additional Complaint(s): Aarti Staley is a 58 year old female, with a past medical history of HTN and arthritis, who presents to the emergency department complaining of right shoulder pain onset for x3 days. 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 Patient reports feeling fine at the time but pain has worsened and states she is unable to raise her arm past shoulder height. She has been taking Ibuprofen intermittently with some improvement, last dose at 07:30 today. She denies any head trauma, dizziness, chest pain, shortness of breath, numbness or tingling in her hands. Of note, patient noted to have a blood pressure of 220/110s and states she does not take blood pressure medications as regularly and does not see a PMD. Patient currently denies any headache, dizziness, gait or visual disturbance. PMD: None provided Past Medical History Reviewed: Historical Data, Nursing Documentation, Vital Signs Vital Signs: Last Vital Signs Temp 97.8 F 04/30/18 14:27 Pulse 93 H 04/30/18 14:27 Resp 17 04/30/18 14:27 BP 224/128 H 04/30/18 14:27 Pulse Ox 100 04/30/18 14:27 - Medical History PMH: Arthritis, Asthma, Back Problems (chronic pain), HTN - Surgical History Surgical History: No Surg Hx - Family History Family History: States: Unknown Family Hx - Social History Current smoker - smoking cessation education provided: Yes (Light smoker <10 cigarettes daily) Alcohol: Social Drugs: Denies - Immunization History Hx Tetanus Toxoid Vaccination: Yes - Home Medications Home Medications: Ambulatory Orders Medication Instructions Recorded Albuterol 0.083% [Albuterol 0.083% 3 ml IH Q6H PRN #30 neb 05/24/17 Inhal Xiemna (2.5 mg/3 ml) UD] DiphenhydrAMINE [Benadryl] 50 mg PO Q6H PRN #20 cap 05/24/17 Famotidine [Pepcid] 20 mg PO BID #20 tab 05/24/17 Nebulizer [Compact Compressor 1 dev XX PRN PRN #1 dev 05/24/17 Nebulizer] Prednisone 50 mg PO DAILY #4 tab 05/24/17 Enalapril/Hydrochlorothiazide 1 each PO DAILY #14 tablet 09/05/17 [Enalapril-Hctz 10-25 mg Tablet] amLODIPine [Norvasc] 10 mg PO DAILY #14 tab 09/05/17 Benzocaine/Menthol [Cepacol Sore 1 each MM Q3H PRN #30 lozenge 12/08/17 Throat Lozenge] Enalapril/Hydrochlorothiazide 1 each PO DAILY #14 tablet 12/08/17 [Enalapril-Hctz 10-25 mg Tablet] amLODIPine [Norvasc] 10 mg PO DAILY #14 tab 12/08/17 - Allergies Allergies/Adverse Reactions: Allergies Allergy/AdvReac Type Severity Reaction Status Date / Time No Known Allergies Allergy Verified 12/08/17 13:40 Review of Systems ROS Statement: Except As Marked, All Systems Reviewed And Found Negative Eyes: Negative for: Vision Change Cardiovascular: Negative for: Chest Pain Respiratory: Negative for: Shortness of Breath Musculoskeletal: Positive for: Shoulder Pain (right) Neurological: Negative for: Numbness (or tingling in hands), Headache, Dizziness, Other (unsteady gait) Physical Exam - Reviewed Nursing Documentation Reviewed: Yes Vital Signs Reviewed: Yes - Physical Exam Appears: Positive for: No Acute Distress Head Exam: Positive for: ATRAUMATIC, NORMAL INSPECTION, NORMOCEPHALIC Skin: Positive for: Normal Color, Warm, Dry Eye Exam: Positive for: Normal appearance, EOMI, PERRL Neck: Positive for: Normal (Normal ROM of neck with lateral rotation, flexion and extension ), Painless ROM, Supple Pulses-Radial (L): 2+ Pulses-Radial (R): 2+ Extremity: Positive for: Tenderness (Mild tenderness to palpation of the anterior right shoulder. ), Capillary Refill (<2sec). Negative for: Normal ROM (Decreased ROM with flexion and abduction of right shoulder. Normal Flexion and extension at right elbow), Deformity (right shoulder), Swelling (erythema or ecchymosis to right shoulder) Neurologic/Psych: Positive for: Alert, Oriented. Negative for: Motor/Sensory Deficits - ECG O2 Sat by Pulse Oximetry: 100 (RA) Pulse Ox Interpretation: Normal Medical Decision Making Medical Decision Making: Time: 14:48 Initial Impression: Right shoulder pain Initial Plan: --Clonidine 0.2mg PO --Flexeril 10mg PO --Motrin tab 800mg PO --Shoulder right [RAD] --Reevaluation 17:20 This patient is choosing to leave against medical advice. The EP has personally explained to the pt that choosing to do so may result in permanent bodily harm or . The EP discussed at great length that without further evaluation and monitoring there may be unforeseen circumstances and/or deterioration causing permanent bodily harm or as a result of their choice. The pt verbalized these risks back to the physician in laymans terms. The pt is alert, oriented, and shows the mental capacity to make clear decisions regarding the pts health care at this time. The pt continues to wish to leave against medical advice. In light of the pts decision to leave AMA, follow-up has been arranged and the pt is aware of the importance of following up as instructed. The pt has been advised that they should return to the ED immediately if they change their mind at any time, or if thier condition begins to change or worsen in any way. Patient left AMA and signed paperwork "I come and how I go." Scribe Attestation: Documented by Chris Stevens, acting as a scribe for Erna Bhakta PA-C. Provider Scribe Attestation: All medical record entries made by the Scribe were at my direction and personally dictated by me. I have reviewed the chart and agree that the record accurately reflects my personal performance of the history, physical exam, medic al decision making, and the department course for this patient. I have also personally directed, reviewed, and agree with the discharge instructions and disposition. Disposition - Disposition Disposition: Against Medical Advice Disposition Time: 17:20 Condition: STABLE Forms: [facility] (Malaysian)
--- NOTE | 2018-04-30 17:15 | RAD ---
PROCEDURE: Radiographs of the Right Shoulder HISTORY: fall onto Right shoulder COMPARISON: Right shoulder radiographs performed 05/21/09 FINDINGS: BONES: Osseous demineralization limits evaluation for acute fracture lines. No acute displaced fracture. The distal clavicle and underlying ribs appear intact. JOINTS: No acute dislocation. Acromioclavicular arthropathy. Glenohumeral joint space narrowing. SOFT TISSUES: Soft tissues appear unremarkable. No evidence of radiopaque foreign body. IMPRESSION: Osseous demineralization. Degenerative changes. No acute displaced fracture or dislocation evident. If symptoms persist or if there is continued clinical concern, x-ray follow-up in 7-10 days should be considered.
[2018-04-30 17:18] VITALS: BP 208/99; PULSE 66; TEMP 97.7
== END 2018-04-30 17:29 | disposition left against medical advice (07) ==
LOC: H.ER 14:23
DX: M25.511 Pain in right shoulder (principal)

== ENCOUNTER 2018-08-13 12:53 | Emergency (ER) | payer OTHER ==
[2018-08-13 12:53] VITALS: BMI 29.2
[2018-08-13 13:53] VITALS: BP 225/144; PULSE 87; RESP 16; TEMP 98.5; O2SAT 98
== END 2018-08-13 14:18 | disposition left against medical advice (07) ==
LOC: H.ER 12:53
DX: Z02.89 Encounter for other administrative examinations (principal)